=== PATIENT | female | born 1975 | race Two or more races ===

== ENCOUNTER 2018-09-01 06:20 | Day surgery (SDC) | payer OTHER | END 2018-09-01 15:26 | disposition home or self-care (01) | LOC: CIR.AMB 06:20 | DX: K64.8 Other hemorrhoids (principal); K64.4 Residual hemorrhoidal skin tags ==

== ENCOUNTER 2021-04-05 09:52 | Day surgery (SDC) | payer OTHER | END 2021-04-05 16:40 | disposition home or self-care (01) | LOC: AMB-ENDOS 09:52 | PROVIDERS: ATTEND Colon & Rectal Surgery | DX: D12.3 Benign neoplasm of transverse colon (principal); K64.0 First degree hemorrhoids; Z20.822 Contact with and (suspected) exposure to COVID-19 ==